=== PATIENT | male | born 1975 | race African-American/Black ===

== ENCOUNTER 2018-03-19 18:09 | Emergency (ER) | payer BC ==
[~2018-03-19] VITALS: Ht 185.4 cm; Wt 79.8 kg
[2018-03-19 18:48] LABS: BASOPHIL (%) 0.7 % (0-1); EOSINOPHIL (%) 0.7 % (0-5); HEMATOCRIT 36.1 % (38.0-50.0); HEMOGLOBIN 12.4 G/DL (12.5-16.6); IMMATURE GRANULOCYTE (%) 0.2 % (0.0-0.7); LYMPHOCYTE (%) 28.7 % (15-42); LYMPHOCYTE COUNT 1.7 K/uL (1.0-2.8); MCH 29.5 PG (29.0-34.0); MCHC 34.3 G/DL (30.0-36.0); MONOCYTE (%) 9.6 % (3-12); MONOCYTE COUNT 0.6 K/uL (0-0.8); NEUTROPHIL (%) 60.1 % (45-76); NEUTROPHIL COUNT 3.6 K/uL (1.8-6.4); PLATELET COUNT 167 K/uL (156-360); RBC DIS.WIDTH-CV 12.3 % (11.8-14.6); RBC DIS.WIDTH-SD 38.8 % (39-53)
[2018-03-19 18:56] LABS: ALBUMIN 3.9 g/dL (3.2-4.8); CHLORIDE 104 mEq/L (99-109); POTASSIUM 3.5 mEq/L (3.7-5.4); SODIUM 139 mEq/L (136-147)
[2018-03-19 18:59] LABS: GLUCOSE 95 mg/dL (70-99); TOTAL PROTEIN 6.5 g/dL (6.4-8.3)
[2018-03-19 19:02] LABS: ALKALINE PHOSPHATASE 34 IU/L (3-129); GFR ESTIMATE (CALCULATED) > 59 mL/min/ (58.99-99999)
[2018-03-19 19:04] LABS: AST (GOT) 50 IU/L (2-34); DIRECT BILIRUBIN 0.5 mg/dL (0.0-0.3); UREA NITROGEN (BUN) 13 mg/dL (9-23)
[2018-03-19 19:05] LABS: ALT (GPT) 57 IU/L (3-49)
[2018-03-19 19:52] LABS: APPEARANCE CLEAR ((CLEAR)); BILIRUBIN NEGATIVE; BLOOD NEGATIVE; COLOR YELLOW ((YELLOW)); GLUCOSE (STRIP) NEGATIVE; KETONES NEGATIVE; LEUKOCYTES NEGATIVE; NITRITE NEGATIVE; PROTEIN (STRIP) NEGATIVE; SPECIFIC GRAVITY 1.013 (1.000-1.030); UROBILINOGEN 0.2 MG/DL (0.2-1.0)
[2018-03-19] MEDS ORDERED: MOTRIN800 MG PO (20:24)
[2018-03-19] MEDS ORDERED: NORCO 10/3251 TABLET PO (20:24)
[2018-03-19] MEDS ORDERED: ZITHROMAX250 MG PO (20:26)
[2018-03-19 20:39] VITALS: BP 160/89
== END 2018-03-19 20:40 | disposition home or self-care (01) ==
LOC: EME 18:09
PROVIDERS: Physician Assistant
DX: S22.41XA Multiple fractures of ribs, right side, initial encounter for closed fracture (principal); S32.018A Other fracture of first lumbar vertebra, initial encounter for closed fracture; Y04.0XXA Assault by unarmed brawl or fight, initial encounter; J98.11 Atelectasis; F17.200 Nicotine dependence, unspecified, uncomplicated; Z71.6 Tobacco abuse counseling
CPT/HCPCS: 71260; 74177; 80048; 80076; 81003; 85025; 99281; 99285; J3010; J7030